=== PATIENT | male | born 1995 | race Caucasian/White ===

== ENCOUNTER → 2018-01-24 | Outpatient (CLI) | payer BC ==
--- NOTE | 2018-01-25 16:58 | PULMONARY FUNCTION TEST ---
Pre-bronchodilator spirometry is well within normal limits. There was no significant response to bronchodilator, but this should not preclude a therapy trial if clinically warranted. Clinical correlation is needed.
== END | disposition home or self-care (01) ==
LOC: C.RC 14:02
PROVIDERS: ATTEND Family Medicine
DX: R05 Cough (principal)